=== PATIENT | male | born 1945 | race Caucasian/White ===

== ENCOUNTER 2016-12-30 09:57 | Emergency (ER) | payer MEDICARE, OTHER ==
--- NOTE | 2016-12-30 11:47 | UC ---
Respiratory Complaint HPI - HPI Summary HPI Summary: PT C/O INTERMITTENT DRY COUGH FOR PAST 10 MONTHS OR SO SINCE BEING IN [place]. SX WAX AND WANE. WILL BE ABSENT FOR 1-2 WEEKS THEN RETURN. NO FEVER, ST OR OTHER URI SX. NO HEMOPTYSIS OR MUCOUS. DENIES CP OR SOB. NOT ASSOCIATED WITH FOOD. FEELS BETTER WHEN HE LAYS DOWN. HAS A H/O ULCER AND TAKES PPI DAILY. DOES NOT TAKE ACEI. - History of Current Complaint Chief Complaint: UCRespiratory Stated Complaint: COUGH Time Seen by Provider: 12/30/16 11:38 Hx Obtained From: Patient Onset/Duration: Gradual Onset, Lasting Weeks, Still Present Timing: Intermittent Episodes Severity Initially: Moderate Severity Currently: Moderate Pain Intensity: 0 Pain Scale Used: 0-10 Numeric Character: Cough: Nonproductive Aggravating Factors: Nothing Alleviating Factors: Nothing Associated Signs And Symptoms: Negative: Dyspnea, Fever, Chills, Pleuritic Chest Pain, Wheezing, Hemoptysis, Edema, URI, Nasal Congestion, Hoarseness - Allergies/Home Medications Allergies/Adverse Reactions: Allergies Allergy/AdvReac Type Severity Reaction Status Date / Time Doxycycline Allergy Hives Verified 12/30/16 10:58 Home Medications: Home Medications Aspirin [Aspirin 81 MG TAB] 12/30/16 [History] PMH/Surg Hx/FS Hx/Imm Hx Cardiovascular History: Hypertension GI/ History: Ulcer - Surgical History Surgical History: Yes Surgery Procedure, Year, and Place: left leg artery blockage - Family History Known Family History: Positive: Hypertension Negative: Respiratory Disease - Social History Alcohol Use: None Substance Use Type: None Smoking Status (MU): Former Smoker Review of Systems Constitutional: Negative Respiratory: Cough Cardiovascular: Negative Gastrointestinal: Negative All Other Systems Reviewed And Are Negative: Yes Physical Exam Triage Information Reviewed: Yes Appearance: Well-Appearing, No Pain Distress, Well-Nourished Vital Signs: Initial Vital Signs Temp 97.6 F 12/30/16 11:00 Pulse 81 12/30/16 11:00 Resp 16 12/30/16 11:00 BP 134/68 12/30/16 11:00 Pulse Ox 100 12/30/16 11:00 Vital Signs Reviewed: Yes Eyes: Positive: Conjunctiva Clear ENT: Positive: Hearing grossly normal, Pharynx normal Neck: Positive: Supple, Nontender, No Lymphadenopathy Respiratory Exam: Normal Cardiovascular Exam: Normal Abdomen Description: Positive: Soft Musculoskeletal: Positive: No Edema Neurological: Positive: Alert Psychological: Positive: Age Appropriate Behavior Skin: Negative: rashes UC Diagnostic Evaluation - Laboratory O2 Sat by Pulse Oximetry: 100 - Radiology Xray Interpretation: No Acute Changes - CHEST XRAY Radiology Interpretation Completed By: Radiologist Respiratory Course/Dx - Differential Dx/Diagnosis Provider Diagnoses: CHRONIC COUGH Discharge - Discharge Plan Condition: Stable Disposition: HOME Patient Education Materials: Chronic Cough (ED) Referrals: Katlyn Franco MD [Medical Doctor] - 2 Weeks Aristides Hoffman MD [Primary Care Provider] - 2 Weeks Additional Instructions: CHEST XRAY SHOWED HYPERINFLATED LUNGS TODAY BUT NOTHING ACUTE. FOLLOW-UP WITH PULMONOLOGY FOR FURTHER EVALUATION OF YOUR CHRONIC COUGH. CONSIDER A GI ETIOLOGY OF YOUR SYMPTOMS IF PULMONOLOGY IS UNREVEALING.
[2016-12-30 12:29] VITALS: BP 151/68
--- NOTE | 2016-12-30 12:44 | RAD ---
Indication: Cough. 2 views of the chest including dual energy PA views demonstrates hyperinflated lung durán. No evidence of alveolar consolidation is noted. No pleural fluid is identified. IMPRESSION: Hyperinflated lung durán. No active cardiopulmonary disease is identified.
== END 2016-12-30 13:08 | disposition home or self-care (01) ==
LOC: UCEAST 09:57
DX: R05 Cough (principal); I10 Essential (primary) hypertension; Z79.891 Long term (current) use of opiate analgesic; Z87.891 Personal history of nicotine dependence
CPT/HCPCS: 71020; 99211; G0463

== ENCOUNTER 2018-05-11 15:02 | Inpatient (IN) | payer MEDICARE, OTHER ==
[2018-05-11] MEDS ORDERED: Morphine VIAL* 10 MG/ML 1 ML VIAL IV PRN (15:11)
[2018-05-11] MEDS ORDERED: Ondansetron ODT TAB* 4 MG SL PRN (15:11)
[2018-05-11] MEDS ORDERED: Piperacillin/Tazobac ADVAN(*) 3.375 GM in NS 0.9% 100 ML* 100 ML IVPB ONE (15:11)
[2018-05-11] MEDS ORDERED: Zosyn per Pharmacy* NOTE FOLLOW UP SCH (16:00)
[2018-05-11] MEDS ORDERED: Magnesium Sulf 4 GM/100 ML IV* 4,000 MG/100 ML BAG IVPB ONE (16:30)
[2018-05-11] MEDS: NS 0.9% 1000 ML** 1,000 ML IV SCH (17:32)
[2018-05-11] MEDS ORDERED: Fluticasone NASAL SPRAY 50MCG* 16 gm SPRAY BTL BOTH NARES PRN (17:48)
[2018-05-11 18:14] LABS: INR 2.58 (0.77-1.02)
[2018-05-11 18:24] LABS: C Reactive Protein 161.76 mg/L (<8.01)
[2018-05-11] MEDS ORDERED: Warfarin TAB(*) 2.5 MG PO ONE (18:30)
[2018-05-11] MEDS: ZOSYN 3.375 GM Q8H per EXTENDED INFUSION IVPB SCH ×2 (18:33)
[2018-05-11] MEDS ORDERED: Iodixanol* (CONTRAST) 320 MG/ML 100 ML SDV IV ONE (19:57)
[2018-05-11] MEDS: Metoprolol Tartrate TAB* 25 MG PO SCH (21:05)
[2018-05-11] MEDS: Famotidine IV* 10 MG/ML 2 ML (20 mg) IV SLOW PU SCH (21:06)
[2018-05-12] MEDS: ZOSYN 3.375 GM Q8H per EXTENDED INFUSION IVPB SCH ×6 (02:38→18:52)
[2018-05-12] MEDS: NS 0.9% 1000 ML** 1,000 ML IV SCH ×2 (06:04→18:54)
[2018-05-12 06:41] LABS: Hematocrit 27 % (42-52); Hemoglobin 8.6 g/dl (14.0-18.0); Mean Corpuscular HGB Conc 32 g/dl (31-36); Mean Corpuscular Hemoglobin 27 pg (27-31); Mean Corpuscular Volume 84 fL (80-94); Mean Platelet Volume 7.3 fL (7.4-10.4); Platelet Count 478 10^3/ul (150-450); Red Blood Count 3.19 10^6/ul (4.00-5.40); Red Cell Distribution Width 18 % (10.5-15); White Blood Count 10.4 10^3/ul (3.5-10.8)
[2018-05-12 06:47] LABS: INR 3.13 (0.77-1.02)
[2018-05-12 06:57] LABS: Albumin 2.6 g/dL (3.2-5.2); Albumin/Globulin Ratio 0.6 (1-3); BUN/Creatinine Ratio 15.5 (8-20); Calcium 8.3 mg/dL (8.6-10.3); EGFR African American 56.5 (>60); EGFR Non-African American 46.7 (>60); Globulin 4.3 g/dL (2-4); Potassium 4.2 mmol/L (3.5-5.0); Total Bilirubin 0.4 mg/dL (0.2-1.0); Total Protein 6.9 g/dL (6.4-8.9)
[2018-05-12] MEDS ORDERED: Phytonadione Oral Solution* 5 MG/25 ML UDC PO ONE (08:38)
[2018-05-12 09:00] LABS: Magnesium 2.5 mg/dL (1.9-2.7)
[2018-05-12] MEDS ORDERED: predniSONE TAB* 20 MG PO SCH (09:00)
--- NOTE | 2018-05-12 09:12 | PN ---
Progress Note - Progress Note Date of Service: 05/12/18 SOAP: Subjective: []Feels about the same as yesterday. Had a large BM that was more formed. Has bright red blood on tissue when wipes. No chills this AM. Still very tired. Medications: Acetaminophen (Tylenol Tab*) 650 mg PO Q4H PRN PRN Reason: FEVER/PAIN Famotidine (Pepcid Iv*) 20 mg IV SLOW PU BID [facility] Last Admin: 05/12/18 10:24 Dose: 20 mg Fluticasone Propionate (Flonase Nasal [place] 50mcg*) 2 spray BOTH NARES DAILY PRN PRN Reason: Allergies Sodium Chloride (Ns 0.9% 1000 Ml) 1,000 mls @ 100 mls/hr IV PER RATE [facility] Last Admin: 05/12/18 06:04 Dose: 100 mls/hr Piperacillin Sod/Tazobactam (Sod 3.375 gm/ Sodium Chloride) 100 mls @ 25 mls/ hr IVPB Q8H [facility] Last Admin: 05/12/18 10:25 Dose: 25 mls/hr Metoprolol Tartrate (Lopressor Tab*) 25 mg PO BID [facility] Last Admin: 05/12/18 10:25 Dose: 25 mg Morphine Sulfate (Morphine Vial*) 5 mg IV Q4H PRN PRN Reason: PAIN Nf: (Pazopanib Hcl [ (Votrient] 800 Mg)) 800 mg PO DAILY [facility] Last Admin: 05/12/18 10:08 Dose: Not Given Ondansetron HCl (Zofran Odt Tab*) 4 mg SL Q6H PRN PRN Reason: NAUSEA/VOMITING Pharmacy Consult (Zosyn Per Pharmacy*) 1 note FOLLOW UP .ZOSYN PER PHARMACY [facility] Prednisone (Deltasone Tab*) 10 mg PO DAILY [facility] Last Admin: 05/12/18 10:24 Dose: 10 mg Objective: [] Vital Signs Temp Pulse Resp BP Pulse Ox 97.5 F 83 20 155/85 97 05/12/18 02:39 05/12/18 02:39 05/12/18 02:39 05/12/18 02:39 05/12/18 02:39 A&Ox3, EOMI, ROY, neuro grossly non-focal HRR, S1S2 LS clear +BS, abd. soft and on-tender No edema Pale Laboratory Results - last 24 hr 05/11/18 05/11/18 05/12/18 17:25 17:25 06:20 WBC RBC Hgb Hct MCV MCH MCHC RDW Plt Count MPV INR (Anticoag Therapy) 2.58 H Sodium 132 L Potassium 4.2 Chloride 102 Carbon Dioxide 21 L Anion Gap 9 BUN 23 Creatinine 1.48 H Est GFR ( Amer) 56.5 Est GFR (Non-Af Amer) 46.7 BUN/Creatinine Ratio 15.5 Glucose 102 H Calcium 8.3 L Magnesium 2.5 Total Bilirubin 0.40 AST 23 ALT 24 Alkaline Phosphatase 162 H C-Reactive Protein 161.76 H Total Protein 6.9 Albumin 2.6 L Globulin 4.3 H Albumin/Globulin Ratio 0.6 L Prealbumin 9 L 05/12/18 05/12/18 06:20 06:20 WBC 10.4 RBC 3.19 L Hgb 8.6 L Hct 27 L MCV 84 MCH 27 MCHC 32 RDW 18 H Plt Count 478 H D MPV 7.3 L INR (Anticoag Therapy) 3.13 H Sodium Potassium Chloride Carbon Dioxide Anion Gap BUN Creatinine Est GFR ( Amer) Est GFR (Non-Af Amer) BUN/Creatinine Ratio Glucose Calcium Magnesium Total Bilirubin AST ALT Alkaline Phosphatase C-Reactive Protein Total Protein Albumin Globulin Albumin/Globulin Ratio Prealbumin EXAM: CT Abdomen and Pelvis With Contrast EXAM DATE/TIME: 05/11/2018 8:13 PM COMPARISON: AW/WOPW CT ABD W/WO PELVIS W 01/28/2018 10:29 AM C/A W CT CHEST/ABD W 04/04/2018 2:04:16 PM IMPRESSION: 1. Findings of interval RCC metastatic disease progression including numerous new or enlarged pulmonary nodules and ill-defined soft tissue in the surgical bed. No additional findings to correlate with patient's symptomatology. 2. Additional incidental findings as described. To contact [facility] with a general question: [facility] - [phone] For direct physician to physician contact: Physician Hotline - [phone] [facility] ([facility] ID #[id number]) <Electronically signed by Kely Núñez MD in OV> 05/11/182048 CT Head Without and With Contrast EXAM DATE/TIME: 05/11/2018 8:07 PM IMPRESSION: 1. No acute intracranial abnormality. 2. Unchanged age-related atrophy and mild chronic small vessel ischemic disease. To contact [facility] with a general question: [facility] - [phone] For direct physician to physician contact: Physician Hotline - [phone] [facility] ([facility] ID #[id number]) <Electronically signed by Kely Núñez MD in OV> 05/11/182050 Assessment: []72 yo with metastatic RCC admitted last night with persistent weakness and failure to thrive at home. Constellation of symptoms concerning for infectious process and systemic inflammatory process with leukocytosis, lactic acidosis (albeit mild and question of dehydration), hypotension, tachycardia, and temp. 96.7F in the office. Work-up thus far reveals possible GI bleed and progressive cancer. Plan: []1. 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 - leukocytosis improved and cultures pending, continue abx. for now 2. RCC: progressive disease on CT, no evidence for CHICKEN CUTTER mets - has not been consistent with Pazopinib and needs to resume - we will plan to add immunotherapy once outpatient based on recent phase 3 data : Ml et al., DOI: [id number] 3. Stool Occult blood positive: hx. 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 K now, and repeat INR - consult GI re: EGD possibly tomorrow 4. Anemia: likely related to blood loss, however component of chronic disease as well - transfuse 1 unit PRBCs, risks and benefits reviewed, pt. has had tranfusions before, agreeable and denies questions 5. Protein-caloric malnutrition: pre-ablumin 9, and wt. loss of >10 lbs in <1 mo (office wts = 04/20 169#, 05/11 154#) - nutrition consult 6. Weakness: multi-factorial - request PT consult
[2018-05-12] MEDS: PAZOPANIB HCL 800 MG PO SCH (10:08)
[2018-05-12] MEDS: Famotidine IV* 10 MG/ML 2 ML (20 mg) IV SLOW PU SCH ×2 (10:24→21:26)
[2018-05-12] MEDS: predniSONE TAB* 10 MG PO SCH (10:24)
[2018-05-12] MEDS: Metoprolol Tartrate TAB* 25 MG PO SCH ×2 (10:25→21:26)
[2018-05-12] MEDS: Acetaminophen TAB* 325 MG PO PRN ×2 (13:15→21:38)
--- NOTE | 2018-05-12 14:56 | ECHO ---
Patient: JONNY HAMILTON [facility] Rec#: [id number] : 1945 Date: 05/12/2018 Age: 72y Height: 175.3 cm / 69.0 in Weight: 71.7 kg / 158.0 lbs Sex: M BSA: 1.9 Room#: [facility] Admit Date#: 05/11/2018 Type: Inpatient Referring: Aristides Hoffman MD Reading: Govind Anne MD Air Box Tester: Mariana Valentine RN RDCS CC: Aristides Hoffman MD Transthoracic Echocardiogram Indication: Shortness of breath, valvular disease BP: 155/85 HR: 93 Rhythm: NSR Findings History: HTN, HLD, LBBB, PVD, kidney cancer with right nephrectomy, former smoker Technical Comments: The study quality is fair. The study is technically limited due to the patient's smoking history. Left Ventricle: The left ventricular chamber size is decreased. Mild concentric left ventricular hypertrophy is observed. Basal septal hypertrophy and systolic anterior motion of the mitral valve are observed creating an outflow tract gradient. The septal knuckle measures 1.7cm. There is a focal wall motion abnormality present. There is moderately decreased left ventricular systolic function. The estimated ejection fraction is 30-35%. The lateral, posterolateral, and basal anterosetpal are best preserved. The is chordal HANNA and moderate dynamic LVOT obstruction up to 2.9 mps and up to 3 mps with valsalva. There is a left ventricular septal wall motion abnormality observed, possibly due to the presence of a left bundle branch block. Abnormal left ventricular diastolic function is observed. The basal inferior, mid anteroseptal, mid anterior, mid anterolateral, mid inferolateral, mid inferior, apical lateral, and apical inferior wall segments are hypokinetic (score 2). The mid inferoseptal, and apical anterior wall segments are akinetic (score 3). The apical septal wall segment is dyskinetic (score 4). Overall wallmotion score index is 1.94 Left Atrium: The left atrial chamber size is normal. Right Ventricle: The right ventricular chamber size and systolic function are within normal limits. Right Atrium: The right atrial cavity size is normal. Aortic Valve: The aortic valve is trileaflet. The aortic valve leaflets are mildly thickened. There is moderate thickening of the left coronary cusp. Systolic excursion of the left coronary cusp is reduced. There is a trace of aortic regurgitation. There is borderline aortic stenosis present. The mean gradient of the aortic valve is 11 mmHg. The peak instantaneous gradient of the aortic valve is 24 mmHg. The aortic valve area, by peak velocities, is calculated at 2.2 cm2. The aortic valve area, by VTI's, is calculated at 2.4 cm2. Mitral Valve: The mitral valve leaflets are mildly thickened. There is mild mitral regurgitation. There is no evidence of mitral stenosis. Chordal systolic anterior motion is visualized. Tricuspid Valve: The tricuspid valve leaflets are normal. There is mild tricuspid regurgitation. No pulmonary hypertension is noted. There is no tricuspid stenosis. Pulmonic Valve: The pulmonic valve structure is not well visualized. There is mild to moderate pulmonic regurgitation. There is no pulmonic stenosis. Pericardium: There is no significant pericardial effusion. A pericardial fat pad is visualized. Aorta: There is no dilatation of the ascending aorta. The aortic arch is not well visualized. There is no dilation of the aortic root. Pulmonary Artery: The main pulmonary artery appears normal. Venous: The inferior vena cava appears normal in size. There is a greater than 50% respiratory change in the inferior vena cava dimension. Conclusions The study is technically limited due to the patient's smoking history. Mild concentric left ventricular hypertrophy is observed withn a relatively thicker upper septum. Basal septal hypertrophy and systolic anterior motion of the mitral valve are observed creating an outflow tract gradient. The septal knuckle measures 1.7 cm. There are focal wall motion abnormalites present. There is moderately decreased left ventricular systolic function. The estimated ejection fraction is 30-35%. The lateral, posterolateral, and basal anterosetpal are best preserved. The is chordal HANNA and moderate dynamic LVOT obstruction up to 2.9 mps and up to 3 mps with valsalva. There is a left ventricular septal wall motion abnormality observed, possibly due to the presence of a left bundle branch block. The aortic valve leaflets are mildly thickened. There is borderline aortic stenosis present. There is mild mitral regurgitation. There is mild tricuspid regurgitation. There is mild to moderate pulmonic regurgitation. Compared to 03/2010, the wall motion abnormalities are new and the EF has decreased from 55-60% then to 30-35% now. The LVOT velocity has increased from 2.6 mps then to 2.9 mps now. Measurements Name Value Normal Range RVIDd (AP) 2D 3.1 cm (0.9 - 2.6) RVDdMajor (2D) 2.9 cm (2.2 - 4.4) RAd ISD 4CH 3.5 cm (3.4 - 4.9) RA (A4C)W 2.9 cm (2.9 - 4.6) IVSd (2D) 1.2 cm (0.6 - 1) LVPWd (2D) 1.1 cm (0.6 - 1) LVIDd (2D) 3.4 cm (3.6 - 5.4) LVIDs (2D) 2.7 cm - LV FS (2D) 21 % (25 - 45) Aortic Annulus 2 cm (1.4 - 2.6) Ao root diameter (2D) 3.1 cm (2.1 - 3.5) Ascending Ao 3.4 cm (2.1 - 3.4) LA dimension (AP) 2D 3.1 cm (2.3 - 3.8) LAd ISD 4CH 3.1 cm (2.9 - 5.3) LA ISD 4CH W 2.8 cm (2.5 - 4.5) Name Value Normal Range LA ESV SP 4CH (A/L) 15 ml - LA ESV SP 2CH (A/L) 47 ml - LA ESV BP (A/L) 31 ml - LA ESV BP (A/L) index 16.6 ml/m2 - LA ESV SP 4CH (MOD) 13 ml - LA ESV SP 2CH (MOD) 44 ml - Name Value Normal Range MV E-wave Vmax 0.5 m/sec - MV deceleration time 141 msec - MV A-wave Vmax 0.92 m/sec - MV E:A ratio 0.54 ratio - LV septal e' Vmax 0.05 m/sec - LV lateral e' Vmax 0.06 m/sec - LV E:e' septal ratio 10 ratio - LV E:e' lateral ratio 8.3 ratio - Name Value Normal Range AV Vmax 2.4 m/sec - AV VTI 32.3 cm - AV peak gradient 24 mmHg - AV mean gradient 11 mmHg - LVOT diameter 2 cm - LVOT Vmax 1.7 m/sec - LVOT VTI 24.5 cm - LVOT peak gradient 12 mmHg - LVOT mean gradient 7 mmHg - DOI (VTI) 0.76 ratio - DOI (Vmax) 0.71 ratio - ORALIA (continuity Vmax) 2.2 cm2 - ORALIA (continuity VTI) 2.4 cm2 - Name Value Normal Range TR Vmax 2.7 m/sec - TR peak gradient 29 mmHg - RAP 3 mmHg - RVSP 32 mmHg - IVC diameter 0.9 cm - Name Value Normal Range PV Vmax 0.81 m/sec - Wallmotion BAS Normal BA Normal BAL Normal JAY Normal BI Hypokinetic BIS Normal MAS Hypokinetic MA Hypokinetic MAL Hypokinetic MIL Hypokinetic KS Hypokinetic MIS Akinetic Dyskinetic AA Akinetic AL Hypokinetic AI Hypokinetic APEX Hypokinetic
--- NOTE | 2018-05-12 19:46 | CONS ---
CONSULTATION REPORT: DATE OF CONSULT: 05/12/18 REQUESTING PHYSICIAN: Dianna Mistry NP*. REASON FOR CONSULT: Anemia and epigastric pain. HISTORY OF PRESENT ILLNESS: This is a 72-year-old male with a history of metastatic renal cell carcinoma, who is in rare progressive weakness and fatigue and was admitted to [facility] secondary to this. He admits to subjective fever, but no distinct chills or rigors. He states that initially he had diarrhea with 4 to 5 bowel movements a day, liquid, but now has been swinging more towards constipation. He denies any maribell melena. He admits to occasional bright red blood when wiping only. This does not fill the bowl. He admits to a new epigastric pain in a band- like fashion that waxes and wanes, 4/10, sharp , can be worse postprandial. No nausea or emesis. He has been continuing to lose weight unintentionally. Appetite has been relatively poor. No dysphagia. No odynophagia. He states that he usually does not have heartburn, but over the last week to [id number], he has had increasing heartburn after his omeprazole was stopped. The remainder of the 14- point review of systems was grossly negative. PAST MEDICAL HISTORY: RCC, metastatic. PAST SURGICAL HISTORY: Port placement. Colonoscopy done in [place] [address] Jyotsna Bal revealed multiple polyps, fair colonoscopy prep, small nonbleeding hemorrhoids, normal terminal ileum, no recent upper endoscopy on record. HOME MEDICATIONS: Include: 1. Aspirin. 2. Vitamin D. 3. Felodipine. 4. Fluticasone. 5. Magnesium. 6. Metoprolol. 7. Benicar. 8. Pazopanib. 9. Pravastatin. 10. Prednisone. 11. Warfarin. FAMILY HISTORY: Denies any family history of colorectal cancer, inflammatory bowel disease, or GI cancer. SOCIAL HISTORY: Social alcohol. Prior tobacco. REVIEW OF SYSTEMS: The remainder of the 14-point review of systems is grossly negative. PHYSICAL EXAM: Vital Signs: Blood pressure is 126/67, pulse is 78, respiratory rate is 16, temperature is 98.1. General: Alert and oriented x3. HEENT: Atraumatic, normocephalic. Pupils equal, round, reactive to light. Extraocular movements are intact. Sclerae anicteric. Conjunctivae are pink. Cardiovascular: Regular rate and rhythm. S1, S2. Respiratory: Diminished at the base with scant rhonchi that do not totally clear. Abdomen: Soft, mild tenderness to palpation in the epigastrium. No guarding or rebound. Bowel sounds positive. Extremities: No clubbing, no cyanosis, no edema. Skin: Scattered ecchymoses. DIAGNOSTIC STUDIES/LAB DATA: Hemoglobin 8.6, early in May was 10.3; however, he appears to hang in the 8 to 9s on a chronic basis before this. Platelet count 478. ESR 106. INR 3.13. Sodium 132. Creatinine 1.48. AST 23, ALT 24, alkaline phosphatase 162. Albumin 2.6, prealbumin 9. CT of the abdomen and pelvis shows findings of interval progression of his metastatic disease with new and enlarging pulmonary nodules. Pancreas appears normal. No ductal dilatation. Stomach and bowels appear grossly normal. Brain CT with no acute intracranial abnormality. ASSESSMENT AND PLAN: A 72-year-old male with metastatic renal cell carcinoma, presenting with fatigue and weakness and anemia. 1. Anemia. Normocytic. No overt signs or loss at this point outside of scant bleeding when wiping. He does not have gross hematochezia or melena. He had a colonoscopy in April 2017 that showed evidence of polyps and fair prep. He has not had a recent upper endoscopy. Would recommend upper endoscopy to evaluate both his abdominal discomfort and his anemia, suspect this may be related to a combination of his anemia of chronic disease along with potential intermittent loss with his anticoagulation. We will potentially plan for upper endoscopy on 05/13/18, pending clinical course. 2. Abdominal pain. Pancreas looks normal on the CT, does not appear to be consistent with pancreatitis. Increasing reflux after stopping his omeprazole recently. Recommend restarting PPI and we will plan endoscopic evaluation. 3. History of renal cell carcinoma per primary team. [id number]/[facility] #: [id number] ALEXD
[2018-05-12] MEDS ORDERED: Famotidine IV* 10 MG/ML 2 ML (20 mg) ONE (21:19)
[2018-05-13] MEDS: ZOSYN 3.375 GM Q8H per EXTENDED INFUSION IVPB SCH ×6 (02:17→17:59)
[2018-05-13 05:25] LABS: ABS Basophils 0 10^3/ul (0-0.2); ABS Eosinophils 0 10^3/ul (0-0.6); ABS Lymphocytes 2.3 10^3/ul (1.0-4.8); ABS Monocytes 1.2 10^3/ul (0-0.8); ABS Neutrophils 6.9 10^3/ul (1.5-7.7); ABS Nucleated RBC 0 10^3/ul; Eosinophil % 0.1 %; Hematocrit 27 % (42-52); Hemoglobin 8.7 g/dl (14.0-18.0); Lymphocyte % 21.6 %; Mean Corpuscular HGB Conc 32 g/dl (31-36); Mean Corpuscular Hemoglobin 28 pg (27-31); Mean Corpuscular Volume 86 fL (80-94); Mean Platelet Volume 7.3 fL (7.4-10.4); Nucleated Red Blood Cells % 0; Platelet Count 403 10^3/ul (150-450); Red Blood Count 3.18 10^6/ul (4.00-5.40); Red Cell Distribution Width 18 % (10.5-15); White Blood Count 10.5 10^3/ul (3.5-10.8)
[2018-05-13 05:31] LABS: INR 1.67 (0.77-1.02)
[2018-05-13 05:46] LABS: Albumin 2.4 g/dL (3.2-5.2); Albumin/Globulin Ratio 0.6 (1-3); BUN/Creatinine Ratio 13.4 (8-20); EGFR African American 52.8 (>60); EGFR Non-African American 43.6 (>60); Magnesium 1.9 mg/dL (1.9-2.7); Potassium 4.6 mmol/L (3.5-5.0); Total Bilirubin 0.3 mg/dL (0.2-1.0); Total Protein 6.4 g/dL (6.4-8.9)
[2018-05-13] MEDS: Acetaminophen TAB* 325 MG PO PRN ×2 (09:00→20:53)
[2018-05-13] MEDS: Metoprolol Tartrate TAB* 25 MG PO SCH ×2 (09:01→20:53)
[2018-05-13] MEDS: Famotidine IV* 10 MG/ML 2 ML (20 mg) IV SLOW PU SCH ×2 (09:01→20:54)
[2018-05-13] MEDS: predniSONE TAB* 10 MG PO SCH (09:01)
[2018-05-13] MEDS: PAZOPANIB HCL 800 MG PO SCH (09:39)
[2018-05-13] MEDS ORDERED: fentaNYL* 50 MCG/ML 2 ML VIAL (100 MCG VIAL) ONE (12:48)
[2018-05-13] MEDS ORDERED: Midazolam* 1 MG/ML 10 ML VIAL (10 MG) ONE (12:49)
[2018-05-13] MEDS: NS 0.9% 1000 ML** 1,000 ML IV SCH (13:16)
[2018-05-13] MEDS ORDERED: Pantoprazole TAB * 40 MG TAB PO ONE (14:24)
[2018-05-13] MEDS: Pantoprazole TAB * 40 MG TAB PO SCH (15:34)
--- NOTE | 2018-05-13 18:46 | PN ---
Progress Note - Progress Note Date of Service: 05/13/18 SOAP: Subjective: []Feels a little better since being on antibioitcs. Better then admission. Eating fine but feeling weak. Diffuse muscle pain. No fevers. Acetaminophen (Tylenol Tab*) 650 mg PO Q4H PRN PRN Reason: FEVER/PAIN Last Admin: 05/13/18 09:00 Dose: 650 mg Famotidine (Pepcid Iv*) 20 mg IV SLOW PU BID [facility] Last Admin: 05/13/18 09:01 Dose: 20 mg Fluticasone Propionate (Flonase Nasal [place] 50mcg*) 2 spray BOTH NARES DAILY PRN PRN Reason: Allergies Heparin Sodium (Porcine) (Heparin Flush Port (Ivad)) 5 ml FLUSH DAILY [facility]; Protocol Last Admin: 05/13/18 15:34 Dose: 5 ml Piperacillin Sod/Tazobactam (Sod 3.375 gm/ Sodium Chloride) 100 mls @ 25 mls/ hr IVPB Q8H [facility] Last Admin: 05/13/18 17:59 Dose: 25 mls/hr Sodium Chloride (Ns 0.9% 1000 Ml) 1,000 mls @ 75 mls/hr IV PER RATE [facility] Last Admin: 05/13/18 13:16 Dose: 75 mls/hr Metoprolol Tartrate (Lopressor Tab*) 25 mg PO BID [facility] Last Admin: 05/13/18 09:01 Dose: 25 mg Morphine Sulfate (Morphine Vial*) 5 mg IV Q4H PRN PRN Reason: PAIN Pto Nf Med* ( Pazopanib Hcl [ Votrient] 200 Mg Tab ) 800 mg PO 2100 [facility] Ondansetron HCl (Zofran Odt Tab*) 4 mg SL Q6H PRN PRN Reason: NAUSEA/VOMITING Pantoprazole Sodium (Protonix Tab*) 40 mg PO QAM@0600 [facility] Last Admin: 05/13/18 15:34 Dose: 40 mg Pharmacy Consult (Zosyn Per Pharmacy*) 1 note FOLLOW UP .ZOSYN PER PHARMACY [facility] Prednisone (Deltasone Tab*) 10 mg PO DAILY [facility] Last Admin: 05/13/18 09:01 Dose: 10 mg Objective: [] Vital Signs Temp Pulse Resp BP Pulse Ox 97.3 F 75 22 161/82 98 05/13/18 17:06 05/13/18 17:06 05/13/18 17:06 05/13/18 17:06 05/13/18 17:06 HEENT - pale no oral lesions CTA RRR S1S2, no murmurs. ABD: Good BS, non tender. No HSM Ext tr edema Assessment: []72 yo with metastatic RCC admitted last night with persistent weakness and failure to thrive at home. Constellation of symptoms concerning for infectious process and systemic inflammatory process with leukocytosis secondary to cancer. He has had a modest improvement on antibiotics. While CT shows an area of progression in renal bed, I suspect symptoms driven by a paraneopalstic inflammatory response. Discussed with son and patient. Without therapy he will be sicker and sicker. Treatment will be high risk. He has just started pazopanib but unclear if tolerating. Options include continued pazopanib , adding pembrolizumab (Ml et al., DOI: [id number]), changing to Ipi/Nivo, hospice. Plan: []1. 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 - leukocytosis improved and cultures pending, continue abx. for now 2. RCC: progressive disease on CT, no evidence for MAIL MESSENGER CONTRACTOR mets. Discussed with patient and son, will see how he does over weekend. If we are going to give immunotherpy at all will have to be soon. 3. GIB. Ulcers, hold anticoagulation, PPI. Second to inflammatory stat or watermaster prednisone. 4. Anemia: likely related to blood loss, however component of chronic disease as well. Follow for now. 5. Protein-caloric malnutrition: pre-ablumin 9, and wt. loss of >10 lbs in <1 mo (office wts = 04/20 169#, 05/11 154#) - nutrition consult, encouraged po's 6. Weakness: multi-factorial - request PT consult, try and walk tomorrow. 7. CHF. New, unclear etiology. There are care reports of rapid CHF on pazopanib. Package insert reports CHF in 0.5% of patients. Lisinopril 10 mg po daily.
[2018-05-13] MEDS: PAZOPANIB HCL 200 MG PO SCH (20:54)
--- NOTE | 2018-05-13 21:58 | PRO ---
DATE: 05/13/18 - ROOM #420 REFERRING PHYSICIANS: Dr. Aristides Hoffman, Dr. Lenny Escobedo.* PROCEDURE: Upper gastrointestinal endoscopy through to fourth portion of duodenum. INDICATION: This 72-year-old man was admitted because of weakness and anemia with hemoglobin 8.6, hematocrit 27, MCV 84. He lives alone and says that an acid blocking medicine was stopped several weeks ago for reasons he is not aware of. He had been on an acid kyle for over 10 years. His son mentioned something about his magnesium level. Thirteen months ago, he had upper and lower endoscopy demonstrating iron- deficiency anemia, and no malabsorption or ulcer was seen on the upper endoscopy. Colonoscopy the same day, in a separate report, and a couple of tubular adenomas but no gross bleeding point. At home, he had been having some diarrhea and has noted that his magnesium level on 04/19/18 was indeed a panic value of 0.6. His PPI was stopped and magnesium supplement was begun. He has a history of GI bleeding from presumed duodenal ulcers [place] [address] Alvarenga scoped him. He was on warfarin at that time also. ENDOSCOPIST: Dr. Gates. MEDICATIONS: Midazolam 5, fentanyl 100. FINDINGS: He is an elderly man in bed, rather vague in the history and unable to process detailed information. He is not having any acute nausea, vomiting, or signs of bleeding. He was positioned left side down and moderate sedation induced with sequential doses of medication, and he did better than one might have expected. ESOPHAGOGASTRODUODENOSCOPY: Larynx - symmetric, limited views. Esophagus - easily entered. The mucosa is normal in the upper, mid, and lower esophagus. Stomach - generally normal mucosa in the cardia, fundus, body, and antrum. No blood is seen. There is a small hiatal hernia seen on retroflexion. Duodenum - there are shallow of 6-mm erosion/ulcers without any active bleeding or adherent blood clots. The mucosal breaks appear completely benign and low risk. The duodenal sweep between the bulb and second portion, there are multiple small 2 to 4-mm ulcers. There is no visible vessel or blood clot seen. The third and fourth portions of the duodenum are normal. IMPRESSION: 1. Small hiatal hernia. 2. Gastritis - punctate red spots, fairly intense, seen in the gastric fundus with some minimal wispy bleeding. 3. Duodenal ulcers - no active bleeding and a PPI to start. [id number]/[facility] #: [id number] [facility]
[2018-05-14] MEDS: NS 0.9% 1000 ML** 1,000 ML IV SCH (02:13)
[2018-05-14] MEDS: ZOSYN 3.375 GM Q8H per EXTENDED INFUSION IVPB SCH ×6 (02:13→17:39)
[2018-05-14] MEDS: Pantoprazole TAB * 40 MG TAB PO SCH (05:30)
[2018-05-14 05:44] LABS: ABS Basophils 0.1 10^3/ul (0-0.2); ABS Eosinophils 0.1 10^3/ul (0-0.6); ABS Lymphocytes 3.1 10^3/ul (1.0-4.8); ABS Monocytes 1.4 10^3/ul (0-0.8); ABS Neutrophils 8.7 10^3/ul (1.5-7.7); ABS Nucleated RBC 0 10^3/ul; Eosinophil % 0.5 %; Hematocrit 30 % (42-52); Hemoglobin 9.5 g/dl (14.0-18.0); Lymphocyte % 23.3 %; Mean Corpuscular HGB Conc 32 g/dl (31-36); Mean Corpuscular Hemoglobin 27 pg (27-31); Mean Corpuscular Volume 85 fL (80-94); Mean Platelet Volume 6.9 fL (7.4-10.4); Nucleated Red Blood Cells % 0; Platelet Count 496 10^3/ul (150-450); Red Blood Count 3.51 10^6/ul (4.00-5.40); Red Cell Distribution Width 18 % (10.5-15); White Blood Count 13.4 10^3/ul (3.5-10.8)
[2018-05-14 06:00] LABS: Albumin 2.6 g/dL (3.2-5.2); Albumin/Globulin Ratio 0.6 (1-3); BUN/Creatinine Ratio 13.5 (8-20); Calcium 8.3 mg/dL (8.6-10.3); EGFR African American 59.8 (>60); EGFR Non-African American 49.4 (>60); Globulin 4.2 g/dL (2-4); Potassium 4.7 mmol/L (3.5-5.0); Total Bilirubin 0.3 mg/dL (0.2-1.0); Total Protein 6.8 g/dL (6.4-8.9)
[2018-05-14] MEDS: predniSONE TAB* 10 MG PO SCH (08:59)
[2018-05-14] MEDS: Metoprolol Tartrate TAB* 25 MG PO SCH ×2 (08:59→20:16)
[2018-05-14] MEDS: Lisinopril TAB* 10 MG PO SCH (08:59)
[2018-05-14] MEDS: Famotidine IV* 10 MG/ML 2 ML (20 mg) IV SLOW PU SCH ×2 (08:59→20:17)
[2018-05-14] MEDS: Acetaminophen TAB* 325 MG PO PRN ×2 (10:41→20:15)
[2018-05-14] MEDS: PAZOPANIB HCL 200 MG PO SCH (20:16)
[2018-05-15] MEDS: ZOSYN 3.375 GM Q8H per EXTENDED INFUSION IVPB SCH ×6 (01:55→17:39)
[2018-05-15] MEDS: Pantoprazole TAB * 40 MG TAB PO SCH (06:01)
[2018-05-15] MEDS: Acetaminophen TAB* 325 MG PO PRN ×2 (06:03→10:29)
[2018-05-15] MEDS: NS 0.9% 1000 ML** 1,000 ML IV SCH ×2 (06:46→20:30)
[2018-05-15] MEDS: Metoprolol Tartrate TAB* 25 MG PO SCH ×2 (09:04→21:24)
[2018-05-15] MEDS: Lisinopril TAB* 10 MG PO SCH (09:04)
[2018-05-15] MEDS: predniSONE TAB* 10 MG PO SCH (09:04)
[2018-05-15] MEDS: Famotidine IV* 10 MG/ML 2 ML (20 mg) IV SLOW PU SCH ×2 (09:05→21:25)
[2018-05-15] MEDS ORDERED: Lisinopril TAB* 10 MG PO ONE (13:00)
[2018-05-15] MEDS ORDERED: Valsartan TAB* 160 MG PO SCH (17:00)
[2018-05-15] MEDS: PAZOPANIB HCL 200 MG PO SCH (21:24)
[2018-05-16] MEDS: ZOSYN 3.375 GM Q8H per EXTENDED INFUSION IVPB SCH ×4 (02:35→11:55)
[2018-05-16] MEDS: Pantoprazole TAB * 40 MG TAB PO SCH (07:07)
[2018-05-16 07:13] VITALS: BP 166/88
[2018-05-16] MEDS: Metoprolol Tartrate TAB* 25 MG PO SCH (08:25)
[2018-05-16] MEDS: predniSONE TAB* 10 MG PO SCH (08:25)
[2018-05-16] MEDS: Famotidine IV* 10 MG/ML 2 ML (20 mg) IV SLOW PU SCH (08:25)
[2018-05-16] MEDS ORDERED: Lisinopril TAB* 10 MG PO SCH (09:00)
[2018-05-16] MEDS: NS 0.9% 1000 ML** 1,000 ML IV SCH (09:06)
--- NOTE | 2018-05-16 10:08 | PN ---
Progress Note - Progress Note Date of Service: 05/16/18 SOAP: Subjective: []Feels much better today. Eating well and breathing is better. Has been walking around over weekend. Marked change from one week ago. No fevers, has had increased blood pressure. Acetaminophen (Tylenol Tab*) 650 mg PO Q4H PRN PRN Reason: FEVER/PAIN Last Admin: 05/15/18 10:29 Dose: 650 mg Famotidine (Pepcid Iv*) 20 mg IV SLOW PU BID [facility] Last Admin: 05/16/18 08:25 Dose: 20 mg Fluticasone Propionate (Flonase Nasal [place] 50mcg*) 2 spray BOTH NARES DAILY PRN PRN Reason: Allergies Heparin Sodium (Porcine) (Heparin Flush Port (Ivad)) 5 ml FLUSH DAILY [facility]; Protocol Last Admin: 05/16/18 08:02 Dose: Not Given Piperacillin Sod/Tazobactam (Sod 3.375 gm/ Sodium Chloride) 100 mls @ 25 mls/ hr IVPB Q8H [facility] Last Admin: 05/16/18 02:35 Dose: 25 mls/hr Sodium Chloride (Ns 0.9% 1000 Ml) 1,000 mls @ 75 mls/hr IV PER RATE [facility] Last Admin: 05/16/18 09:06 Dose: 75 mls/hr Lisinopril (Prinivil Tab*) 20 mg PO DAILY [facility] Last Admin: 05/16/18 08:24 Dose: 20 mg Metoprolol Tartrate (Lopressor Tab*) 25 mg PO BID [facility] Last Admin: 05/16/18 08:25 Dose: 25 mg Morphine Sulfate (Morphine Vial*) 5 mg IV Q4H PRN PRN Reason: PAIN Pto Nf Med* ( Pazopanib Hcl [ Votrient] 200 Mg Tab ) 800 mg PO 2100 [facility] Last Admin: 05/15/18 21:24 Dose: 800 mg Ondansetron HCl (Zofran Odt Tab*) 4 mg SL Q6H PRN PRN Reason: NAUSEA/VOMITING Pantoprazole Sodium (Protonix Tab*) 40 mg PO QAM@0600 [facility] Last Admin: 05/16/18 07:07 Dose: 40 mg Pharmacy Consult (Zosyn Per Pharmacy*) 1 note FOLLOW UP .ZOSYN PER PHARMACY [facility] Prednisone (Deltasone Tab*) 10 mg PO DAILY [facility] Last Admin: 05/16/18 08:25 Dose: 10 mg Valsartan (Diovan Tab*) 320 mg PO 1700 [facility] Last Admin: 05/15/18 17:33 Dose: 320 mg Objective: [] Vital Signs Temp Pulse Resp BP Pulse Ox 99.0 F 88 18 166/88 98 05/16/18 07:09 05/16/18 07:09 05/16/18 08:00 05/16/18 07:09 05/16/18 07:09 HEENT - pale no oral lesions CTA RRR S1S2, no murmurs. ABD: Good BS, non tender. No HSM Ext tr edema Assessment: []72 yo with metastatic RCC admitted last night with persistent weakness and failure to thrive at home. Constellation of symptoms concerning for infectious process and systemic inflammatory process with leukocytosis secondary to cancer. He has had a clear improvement on antibiotics and supportive care. While CT shows an area of progression in renal bed, I suspect symptoms driven by a paraneopalstic inflammatory response. Feels ready for discharge today. Has been tolerating Votrant in hospital. Plan: []1. RCC: progressive disease on CT, no evidence for [employer] mets. Discussed with patient and son. Treatment will be high risk. He has just started pazopanib but unclear if tolerating. Will continue pazopanib at this time adding pembrolizumab with change to Axitinib next month. (Ml et al., DOI: 10.1056/ [id number]), - Discharge today and follow up on for office visit and Pembrolizumab. 3. GIB. Ulcers, hold anticoagulation, PPI. Second to inflammatory stat or retirement prednisone. 4. Anemia. Improved and will follow. 5. Protein-caloric malnutrition: pre-albumin 9, and wt. loss of >10 lbs in <1 mo (office wts = 04/20 169#, 05/11 154#). Eating well at this time, will follow as out-patient. 6. Infection. Continue antibiotics for one additional week, Augmentin 875 mg po bid. 7. Weakness: multi-factorial, improved. 7. CHF. New, unclear etiology. Infection, medication, ischemia. - manage medically, will continue Metoprolol, diovan and add Lasix 20 mg po daily - Follow BP - Out-patient stress test once improved, will consult cardiology. Poor candidate for intervention.
--- NOTE | 2018-05-16 12:02 | DS ---
DISCHARGE SUMMARY: DATE OF ADMISSION: 05/11/18 DATE OF DISCHARGE: 05/16/18 DISCHARGE DIAGNOSES: 1. Congestive heart failure. 2. Metastatic renal cell cancer. 3. Fever and leukocytosis. 4. Anemia. 5. Anorexia and weakness. HOSPITAL COURSE: Came in on 05/11/18, essentially failure to thrive and marked anemia. He had fever on admission over 101.5 as well. He was noted to be leukocytotic and progressively anemic. He had a CT scan of the abdomen and pelvis which showed stable pulmonary lesions, but progressive renal cell cancer at the bed of his prior nephrectomy. No clear source of infection was found, but he was placed on antibiotics and did seem to improve. He had an echocardiogram done on 05/11/18 that showed congestive heart failure with an ejection fraction of 30% to 35%. Last echocardiogram was in 2010 and at that time he had a normal ventricular size and function. Etiology of heart failure is unclear with differential including sepsis, side effect of Votrient though he has been on therapy for short period of time, underlying cardiac disease. He was continued on his metoprolol and placed on Diovan 320 p.o. daily. He is continued on warfarin through hospitalization. Today, fevers have subsided. His strength has improved and he is eating well. Walking around without any difficulty. He had nutrition consult and has been receiving Ensure supplementation. 1. I will plan discharge today with followup in clinic on . 2. Extensive discussion about continued treatment of renal cell cancer. Based on recent phase III data, we will continue oral therapy and add pembrolizumab. He will continue Votrient through this current prescription and then will change to Axitinib to be consistent with recent to be consistent with phase III data. 3. Congestive heart failure. He will continue his metoprolol, lisinopril, warfarin, and he will take Lasix 20 mg p.o. daily on discharge. We will plan a cardiology consultation. He is a poor candidate for intervention. Known mitral stenosis. 4. Anemia. Improved on discharge, we will follow. Return to clinic will be . DISCHARGE MEDICATIONS: 1. Fluconazole nasal spray. 2. Pazopanib 800 mg p.o. daily. 3. Aspirin 81 mg a day. 4. Vitamin D 1000 a day. 5. Plendil 5 mg daily. 6. Magnesium oxide 400 b.i.d. 7. Metoprolol 25 mg b.i.d. 8. Benicar 20 mg p.o. daily. 9. Pravachol 80 mg p.o. daily. 10. Warfarin mg p.o. daily. 11. Augmentin 875 p.o. daily. 12. Lasix 20 mg p.o. daily. 13. Valsartan 320 mg p.o. daily. We will recheck full labs including INR on . [id number]/[facility] #: [id number] [facility]
== END 2018-05-16 12:20 | disposition home health service (06) | DRG 291 ==
LOC: MED 16:06
PROVIDERS: ADMIT Internal Medicine Hematology & Oncology; ATTEND Internal Medicine Hematology & Oncology
PROC: 30233N1 Transfusion of Nonautologous Red Blood Cells into Peripheral Vein, Percutaneous Approach (ICD-10-PCS; 2018-05-12)
PROC: 0DJ08ZZ Inspection of Upper Intestinal Tract, Via Natural or Artificial Opening Endoscopic (ICD-10-PCS; principal; 2018-05-13)
DX: I11.0 Hypertensive heart disease with heart failure (principal); K29.71 Gastritis, unspecified, with bleeding; C64.1 Malignant neoplasm of right kidney, except renal pelvis; E46 Unspecified protein-calorie malnutrition; C78.00 Secondary malignant neoplasm of unspecified lung; R65.10 Systemic inflammatory response syndrome (SIRS) of non-infectious origin without acute organ dysfunction; E87.2 Acidosis; I95.9 Hypotension, unspecified; I50.9 Heart failure, unspecified; E78.5 Hyperlipidemia, unspecified; I05.0 Rheumatic mitral stenosis; K26.9 Duodenal ulcer, unspecified as acute or chronic, without hemorrhage or perforation; I44.7 Left bundle-branch block, unspecified; M35.3 Polymyalgia rheumatica; K44.9 Diaphragmatic hernia without obstruction or gangrene; I73.9 Peripheral vascular disease, unspecified; R19.7 Diarrhea, unspecified; D72.829 Elevated white blood cell count, unspecified; Z68.23 Body mass index [BMI] 23.0-23.9, adult; R53.1 Weakness; E86.0 Dehydration; B99.9 Unspecified infectious disease; R62.7 Adult failure to thrive; D50.0 Iron deficiency anemia secondary to blood loss (chronic); D63.8 Anemia in other chronic diseases classified elsewhere; Z79.01 Long term (current) use of anticoagulants; Z79.82 Long term (current) use of aspirin; Z79.52 Long term (current) use of systemic steroids; Z79.899 Other long term (current) drug therapy; Z88.8 Allergy status to other drugs, medicaments and biological substances; Z83.2 Family history of diseases of the blood and blood-forming organs and certain disorders involving the immune mechanism; Z87.891 Personal history of nicotine dependence; Z83.3 Family history of diabetes mellitus
CPT/HCPCS: 36415; 70470; 74177; 80053; 82272; 83735; 83880; 84134; 85025; 85027; 85610; 85652; 86140; 86850; 86900; 86901; 86922; 87045; 87046; 87899; 93306; 99156; 99157; 99222; 99233; A9270-GY; J1642; J2250; J2543; J3010; J3475; J7512; P9040; Q9967

== ENCOUNTER 2018-05-26 09:44 | Inpatient (IN) | payer MEDICARE, OTHER ==
[2018-05-26] MEDS ORDERED: guaiFENesin/CODIEN 100MG-10MG* 5 ML UDC PO PRN (17:22)
[2018-05-26] MEDS: Metoprolol Tartrate TAB* 25 MG PO SCH (20:34)
[2018-05-26] MEDS: Baclofen TAB* 10 MG PO PRN (20:34)
[2018-05-26] MEDS: Heparin VIAL(*) 5000 UNITS/ML VIAL (FIVE THOUSAND) SUBCUT SCH (20:35)
[2018-05-26] MEDS: NS 0.9% 1000 ML** 1,000 ML IV SCH (20:37)
[2018-05-26] MEDS: Pantoprazole TAB * 40 MG TAB PO SCH (21:43)
[2018-05-27] MEDS: Heparin VIAL(*) 5000 UNITS/ML VIAL (FIVE THOUSAND) SUBCUT SCH (05:33)
[2018-05-27 07:10] LABS: Hematocrit 32 % (36-46); Hemoglobin 10.3 g/dL (14.0-18.0); INR 2.25 (0.77-1.02); Mean Corpuscular HGB Conc 33 g/dL (31-36); Mean Corpuscular Hemoglobin 28 pg (27-31); Mean Corpuscular Volume 87 fL (80-94); Mean Platelet Volume 7.9 fL (7.4-10.4); Platelet Count 321 10^3/uL (150-450); Red Blood Count 3.65 10^6 /uL (4.18-5.48); Red Cell Distribution Width 23 % (10.5-15); White Blood Count 7.7 10^3/uL (3.5-10.8)
[2018-05-27 07:12] LABS: Albumin 2.5 g/dL (3.2-5.2); Albumin/Globulin Ratio 0.5 (1-3); BUN/Creatinine Ratio 18.7 (8-20); Calcium 8.6 mg/dL (8.6-10.3); EGFR African American 28.5 (>60); EGFR Non-African American 23.5 (>60); Globulin 4.6 g/dL (2-4); Magnesium 1.7 mg/dL (1.9-2.7); Total Bilirubin 0.4 mg/dL (0.2-1.0); Total Protein 7.1 g/dL (6.4-8.9)
[2018-05-27 07:18] LABS: Potassium 5.1 mmol/L (3.5-5.0)
[2018-05-27 07:49] LABS: ABS Basophils 0.1 10^3/ul (0-0.2); ABS Eosinophils 0.1 10^3/ul (0-0.6); ABS Lymphocytes 2.3 10^3/ul (1.0-4.8); ABS Monocytes 0.6 10^3/ul (0-0.8); ABS Neutrophils 4.6 10^3/ul (1.5-7.7); ABS Nucleated RBC 0 10^3/ul; Eosinophil % 0.9 %; Lymphocyte % 29.8 %; Nucleated Red Blood Cells % 0.1
--- NOTE | 2018-05-27 10:02 | PN ---
Progress Note - Progress Note Date of Service: 05/27/18 SOAP: Subjective: [] Objective: [] Assessment: [] Plan: []
[2018-05-27] MEDS: Metoprolol Tartrate TAB* 25 MG PO SCH ×2 (10:03→20:41)
[2018-05-27] MEDS: Pantoprazole TAB * 40 MG TAB PO SCH (10:03)
[2018-05-27] MEDS: Aspirin 81 mg CHEW TAB* 81 MG TAB.CHEW PO SCH (10:03)
[2018-05-27] MEDS ORDERED: Magnesium Sulf 4 GM/100 ML IV* 4,000 MG/100 ML BAG IVPB ONE (10:15)
--- NOTE | 2018-05-27 10:16 | PN ---
Progress Note - Progress Note Date of Service: 05/27/18 SOAP: Subjective: [Admitted yesterday evening with c/o weakness and dyspnea with noted TINY. He received IVF overnight and feels better this am. He slept well. Received baclofen for his hiccups which seemed to help him rest, but the hiccups are back this am after talking. He hasn't eaten breakfast yet. Renal function still does not allow for contrast this am. CT chest without contrast shows no new pathology. Pulm lesions are stable, no infiltrate or interstitial changes. VQ scan is pending.] Objective: [ Laboratory Results - last 24 hr 05/27/18 05/27/18 05/27/18 05:30 05:30 05:30 WBC 7.7 RBC 3.65 L Hgb 10.3 L Hct 32 L MCV 87 MCH 28 MCHC 33 RDW 23 H Plt Count 321 MPV 7.9 Neut % (Auto) 60.2 Lymph % (Auto) 29.8 [place] % (Auto) 8.1 Eos % (Auto) 0.9 Baso % (Auto) 1.0 Absolute Neuts (auto) 4.6 Absolute Lymphs (auto) 2.3 Absolute Monos (auto) 0.6 Absolute Eos (auto) 0.1 Absolute Basos (auto) 0.1 Absolute Nucleated RBC 0 Nucleated RBC % 0.1 Macrocytosis 1+ Rouleaux 1+ INR (Anticoag Therapy) 2.25 H Sodium 133 L Potassium 5.1 H Chloride 104 Carbon Dioxide 18 L Anion Gap 11 BUN 50 H Creatinine 2.68 H Est GFR ( Amer) 28.5 Est GFR (Non-Af Amer) 23.5 BUN/Creatinine Ratio 18.7 Glucose 111 H Calcium 8.6 Magnesium 1.7 L Total Bilirubin 0.40 AST 45 H ALT 31 Alkaline Phosphatase 190 H Total Protein 7.1 Albumin 2.5 L Globulin 4.6 H Albumin/Globulin Ratio 0.5 L Aspirin (Aspirin 81 Mg Chew Tab*) 81 mg PO DAILY DAK[facility] Baclofen (Lioresal Tab*) 10 mg PO TID PRN PRN Reason: hiccups Last Admin: 05/26/18 20:34 Dose: 10 mg Guaifenesin/Codeine Phosphate (Robitussin Ac 100mg-10mg*) 10 ml PO Q6HR PRN PRN Reason: COUGH Last Admin: 05/26/18 20:34 Dose: 10 ml Sodium Chloride (Ns 0.9% 1000 Ml) 1,000 mls @ 50 mls/hr IV .PER RATE [facility] Last Admin: 05/26/18 20:37 Dose: 50 mls/hr Magnesium Sulfate (Magnesium Sulf 4 Gm/100 Ml Iv*) 4,000 mg in 100 mls @ 33.333 mls/hr IVPB ONCE ONE Stop: 05/27/18 13:14 Metoprolol Tartrate (Lopressor Tab*) 25 mg PO BID [facility] Last Admin: 05/26/18 20:34 Dose: 25 mg Pantoprazole Sodium (Protonix Tab*) 40 mg PO DAILY [facility] Last Admin: 05/26/18 21:43 Dose: 40 mg Vital Signs: Temp Pulse Resp BP Pulse Ox 97.7 F 81 18 127/72 99 05/27/18 08:17 05/27/18 08:17 05/27/18 08:17 05/27/18 08:17 05/27/18 08:17 Exam: Gen: lethargic appearing, but easily arousable 72 yo male in NAD HEENT: MMM, no thrush CV: RRR, no m/r/g Resp: CTA, no w/c/r Abd: soft, nonTTP Ext: no edema Assessment: [72 yo male with metastatic RCC on pazopinib who also recently started pembrolizumab who was admitted with c/o dyspnea, weakness and hiccups. He TINY on admission with a rise in his Cr from baseline 1.5 to 3.0, which appeared to be secondary to hypovolemia which is improving with fluids. Etiology of his TINY is likely multifactorial. He reported poor po intake over the last couple of days with intermittent diarrhea. He was also started on an ARB and loop diuretic following his last admission, ~10d ago which may have caused/ contributed to TINY. Based on his home medication list he has both olmesartan and valsartan. Patient is not clear if he is taking both. Confirmation with his pharmacy shows that he's filled both, but his last olmesartan fill was in February so he should be out of that. Etiology of his dyspnea is not clear, unless it was a manifestation of his weakness secondary to TINY. CT chest shows no acute pathology. PE is still on the differential, but low suspicion as he is currently anticoagulated and therapeutic. His anticoagulation was interrupted for several days with his last admission however. VQ scan ordered for today as renal function will still not allow for contrast.] Plan: [1. TINY - see discussion above - cont IVF (slow rate) and hold ARB/diuretic - UA pending 2. Dyspnea - pending VQ, but not hypoxic or tachypneic and improving 3. CHF - last EF 30-35%, unclear if this is drug effect v ischemic from prior CAD - no evidence of acute exacerbation - currently hypovolemic and ARB/diuretic being held for TINY - cont BB 4. RCC - currently treated with pazopinib/pembrolizumab - holding pazopinib currently but plan to resume when renal function recovers3 5. DVT prophylaxis - anticoagulated with Coumadin, therapeutic INR Dispo: VQ scan pending and renal function still recovering. He would benefit from additional inpatient care and will request PT eval with plans to return home in the next couple of days.
[2018-05-27 11:47] LABS: Urine Appearance Cloudy; Urine Bilirubin Negative (Negative); Urine Blood Negative (Negative); Urine Color Yellow; Urine Glucose Negative (Negative); Urine Ketones Negative (Negative); Urine Nitrite Negative (Negative); Urine Protein Negative (Negative); Urine Specific Gravity 1.014 (1.010-1.030); Urine Urobilinogen Negative (Negative)
[2018-05-27] MEDS: NS 0.9% 1000 ML** 1,000 ML IV SCH (16:01)
[2018-05-27] MEDS ORDERED: Warfarin TAB(*) 2.5 MG PO SCH (17:00)
[2018-05-27] MEDS: Baclofen TAB* 10 MG PO PRN (20:43)
[2018-05-28 05:28] LABS: ABS Basophils 0.1 10^3/ul (0-0.2); ABS Eosinophils 0.1 10^3/ul (0-0.6); ABS Lymphocytes 2.1 10^3/ul (1.0-4.8); ABS Monocytes 0.7 10^3/ul (0-0.8); ABS Neutrophils 3.6 10^3/ul (1.5-7.7); ABS Nucleated RBC 0 10^3/ul; Eosinophil % 1.6 %; Hematocrit 30 % (36-46); Hemoglobin 9.8 g/dL (14.0-18.0); Lymphocyte % 32.3 %; Mean Corpuscular HGB Conc 32 g/dL (31-36); Mean Corpuscular Hemoglobin 28 pg (27-31); Mean Corpuscular Volume 88 fL (80-94); Nucleated Red Blood Cells % 0; Platelet Count 319 10^3/uL (150-450); Red Blood Count 3.47 10^6 /uL (4.18-5.48); Red Cell Distribution Width 23 % (10.5-15); White Blood Count 6.6 10^3/uL (3.5-10.8)
[2018-05-28 05:34] LABS: INR 1.82 (0.77-1.02)
[2018-05-28 05:44] LABS: Albumin 2.4 g/dL (3.2-5.2); Albumin/Globulin Ratio 0.6 (1-3); BUN/Creatinine Ratio 19.1 (8-20); Calcium 8.5 mg/dL (8.6-10.3); EGFR African American 30.7 (>60); EGFR Non-African American 25.4 (>60); Globulin 4.1 g/dL (2-4); Magnesium 2.5 mg/dL (1.9-2.7); Potassium 5.4 mmol/L (3.5-5.0); Total Bilirubin 0.3 mg/dL (0.2-1.0); Total Protein 6.5 g/dL (6.4-8.9)
[2018-05-28 08:50] VITALS: BP 138/84
--- NOTE | 2018-05-28 09:26 | DS ---
- Discharge Summary ADMIT DATE: 05/26/18 DISCHARGE DATE: 05/28/2018 DISCHARGE DIAGNOSES: 1. dehydration 2. acute kidney injury 2/2 dehydration and dual ARB use 3. metastatic kidney cancer, poor tolerance of pazopanib DISCHARGE MEDICATIONS: Home Medications Medication Instructions Recorded Confirmed Type Fluticasone NASAL SPRAY 50MCG* 2 spray BOTH NARES DAILY PRN 04/19/17 05/26/18 History [Flonase NASAL SPRAY 50MCG*] Pravastatin Sodium [Pravachol] 80 mg PO DAILY 04/19/17 05/26/18 History Warfarin TAB(*) [Coumadin TAB(*)] 2.5 mg PO SEE INSTRUCTIONS 04/19/17 05/26/18 History Aspirin 81 mg CHEW TAB* 81 mg PO DAILY 05/11/18 05/26/18 History Felodipine (NF) [Plendil (NF)] 5 mg PO DAILY 05/11/18 05/26/18 History Metoprolol Tartrate TAB* 25 mg PO BID 30 Days tab 05/16/18 05/26/18 Rx [Lopressor TAB*] Codeine Phosphate/Guaifenesin 10 ml PO Q6HR PRN MDD 40mL 05/26/18 05/26/18 History [Guaifen-Codeine 100-10 mg/5 ml] Baclofen TAB* [Lioresal TAB*] 10 mg PO TID PRN #90 tab 05/28/18 Rx DISCHARGE FOLLOW UP: nurse visit, labs, BP check 05/31 at 9 am HOSPITAL COURSE: 72 YO m w metastitic RCC recently started on Pembrolizumab/pazopanib (the latter of which he has tolerated poorly in the past) p/w weakness, fatigue, SOB and acute kidney injury in the setting of diarrhea, poor PO intake and dual ARB usage (while on diuretic). clinically he is markedly improved with hydration and holding these medications. He will be discharged home off of those three medications, and will hold his pazopanib. He will come Wednesday for labs and BP check. he has a full follow up OV on the with ERWIN Pires and at that time clinical course will be decided (resume pazopanib vs. single agent pembro) . I discharged him back on his 2.5 mg of warfarin daily and we will repeat inr on Wednesday. His hiccups have responded nicely to baclofen. The etiology of his SOB was not clear. V/Q scan was negative and CT with stable lung mets. >30 mins spent , >50 % in face to face counseling
[2018-05-28] MEDS: Pantoprazole TAB * 40 MG TAB PO SCH (10:09)
[2018-05-28] MEDS: Aspirin 81 mg CHEW TAB* 81 MG TAB.CHEW PO SCH (10:09)
[2018-05-28] MEDS: Metoprolol Tartrate TAB* 25 MG PO SCH (10:09)
[2018-05-28] MEDS ORDERED: Warfarin TAB(*) 2.5 MG PO SCH (17:00)
[2018-05-31] MEDS ORDERED: Warfarin TAB(*) 2.5 MG PO SCH (17:00)
== END 2018-05-28 11:55 | disposition home health service (06) | DRG 683 ==
LOC: MED 09:44 → OBSVTOIN 05-27 09:44
PROVIDERS: ADMIT Internal Medicine Hematology & Oncology; ATTEND Internal Medicine Hematology & Oncology
DX: N17.9 Acute kidney failure, unspecified (principal); C64.9 Malignant neoplasm of unspecified kidney, except renal pelvis; C79.9 Secondary malignant neoplasm of unspecified site; E86.0 Dehydration; E78.5 Hyperlipidemia, unspecified; I44.7 Left bundle-branch block, unspecified; I11.0 Hypertensive heart disease with heart failure; I50.9 Heart failure, unspecified; E86.1 Hypovolemia; T50.2X5A Adverse effect of carbonic-anhydrase inhibitors, benzothiadiazides and other diuretics, initial encounter; T50.995A Adverse effect of other drugs, medicaments and biological substances, initial encounter; M35.3 Polymyalgia rheumatica; I73.9 Peripheral vascular disease, unspecified; Z87.11 Personal history of peptic ulcer disease; Z87.891 Personal history of nicotine dependence; Z83.3 Family history of diabetes mellitus; Z88.1 Allergy status to other antibiotic agents; Y92.9 Unspecified place or not applicable; Z79.82 Long term (current) use of aspirin; Z79.01 Long term (current) use of anticoagulants
CPT/HCPCS: 36415; 71046; 71250; 78582; 80053; 81003; 83735; 85025; 85060; 85610; 99232; 99239; A9270-GY; A9540; A9558; G0378; G8978-GP-CI; G8979-GP-CH; J1644; J3475

== ENCOUNTER 2018-05-30 13:51 | Inpatient (IN) | payer MEDICARE, OTHER ==
[2018-05-30] MEDS ORDERED: Acetaminophen TAB* 325 MG PO PRN (17:12)
[2018-05-30] MEDS ORDERED: Enoxaparin(*) 30 MG/0.3 ML SYR SUBCUT SCH (18:00)
[2018-05-30] MEDS: NS 0.9% 1000 ML** 1,000 ML IV SCH (18:00)
[2018-05-30] MEDS ORDERED: SIMILASAN EYE BOTH EYES PRN (18:08)
[2018-05-30] MEDS ORDERED: guaiFENesin/CODIEN 100MG-10MG* 5 ML UDC ONE (20:19)
[2018-05-30] MEDS ORDERED: guaiFENesin/CODIEN 100MG-10MG* 5 ML UDC PO ONE (20:30)
[2018-05-30] MEDS ORDERED: Warfarin TAB(*) 2.5 MG PO SCH (20:30)
[2018-05-30] MEDS: Metoprolol Tartrate TAB* 25 MG PO SCH (21:00)
[2018-05-30] MEDS: Docusate CAP* 100 MG PO SCH (21:00)
[2018-05-31] MEDS: NS 0.9% 1000 ML** 1,000 ML IV SCH ×2 (05:45→23:47)
[2018-05-31] MEDS: amLODIPine TAB* 5 MG PO SCH (08:16)
[2018-05-31] MEDS: Metoprolol Tartrate TAB* 25 MG PO SCH ×2 (08:16→21:09)
[2018-05-31] MEDS: Docusate CAP* 100 MG PO SCH ×2 (08:16→21:10)
[2018-05-31 09:05] LABS: ABS Basophils 0.1 10^3/ul (0-0.2); ABS Eosinophils 0 10^3/ul (0-0.6); ABS Monocytes 0.9 10^3/ul (0-0.8); ABS Neutrophils 2.9 10^3/ul (1.5-7.7); ABS Nucleated RBC 0 10^3/ul; Eosinophil % 0.6 %; Hematocrit 28 % (36-46); Hemoglobin 9.1 g/dL (14.0-18.0); Lymphocyte % 34.4 %; Mean Corpuscular HGB Conc 33 g/dL (31-36); Mean Corpuscular Hemoglobin 29 pg (27-31); Mean Corpuscular Volume 88 fL (80-94); Nucleated Red Blood Cells % 0; Platelet Count 369 10^3/uL (150-450); Red Blood Count 3.19 10^6 /uL (4.18-5.48); Red Cell Distribution Width 24 % (10.5-15); White Blood Count 5.9 10^3/uL (3.5-10.8)
[2018-05-31 09:11] LABS: Albumin 2.4 g/dL (3.2-5.2); Albumin/Globulin Ratio 0.6 (1-3); BUN/Creatinine Ratio 18.3 (8-20); Calcium 8.2 mg/dL (8.6-10.3); EGFR African American 48.5 (>60); EGFR Non-African American 40.1 (>60); Globulin 4.2 g/dL (2-4); Magnesium 1.3 mg/dL (1.9-2.7); Total Bilirubin 0.4 mg/dL (0.2-1.0); Total Protein 6.6 g/dL (6.4-8.9)
[2018-05-31 09:12] LABS: Potassium 5.1 mmol/L (3.5-5.0)
[2018-05-31] MEDS ORDERED: Magnesium Sulf 4 GM/100 ML IV* 4,000 MG/100 ML BAG IVPB ONE (10:00)
--- NOTE | 2018-05-31 10:36 | PN ---
Progress Note - Progress Note Date of Service: 05/31/18 SOAP: Subjective: []Presented to office yesterday "seeing things" following discharge home on prochlorperazine d/t intractable hiccups. Tells me he feels better today and has not had an hallucinations. Has a very annoying dry cough and wonders if he can try cough drops. Having some RLQ abd. pain. Had diarrhea yesterday. Medications: Acetaminophen (Tylenol Tab*) 650 mg PO Q4H PRN PRN Reason: FEVER/PAIN Amlodipine Besylate (Norvasc Tab*) 5 mg PO DAILY [facility]; Protocol Last Admin: 05/31/18 08:16 Dose: 5 mg Docusate Sodium (Colace Cap*) 100 mg PO BID [facility] Last Admin: 05/31/18 08:16 Dose: 100 mg Heparin Sodium (Porcine) (Heparin Flush Port ([place])) 5 ml FLUSH DAILY [facility]; Protocol Last Admin: 05/31/18 08:09 Dose: Not Given Sodium Chloride (Ns 0.9% 1000 Ml) 1,000 mls @ 100 mls/hr IV PER RATE [facility] Last Admin: 05/31/18 05:45 Dose: 100 mls/hr Magnesium Sulfate (Magnesium Sulf 4 Gm/100 Ml Iv*) 4,000 mg in 100 mls @ 33.333 mls/hr IVPB ONCE ONE Stop: 05/31/18 12:59 Last Admin: 05/31/18 09:54 Dose: 33.333 mls/hr Metoprolol Tartrate (Lopressor Tab*) 25 mg PO BID [facility] Last Admin: 05/31/18 08:16 Dose: 25 mg Pto: Similasan Eye (Drops) 2 dose BOTH EYES Q2H PRN PRN Reason: DRY EYES Warfarin Sodium (Coumadin Tab(*)) 1.25 mg PO TuTh@1700 DAK[facility] Warfarin Sodium (Coumadin Tab(*)) 2.5 mg PO SuMoWeFrSa@1700 [facility]; Protocol Objective: [] Vital Signs Temp Pulse Resp BP Pulse Ox 98.0 F 78 16 132/64 97 05/31/18 07:43 05/31/18 07:43 05/31/18 08:00 05/31/18 07:43 05/31/18 07:43 A&Ox3, EOMI, PERRLA, ROY, strength=bilat. CN II-XII intact HRR, S1S2 LS dim. to bases, dry cough +BS, abd. soft with tenderness to RLQ +PP=bilat., no edema Dry skin Laboratory Results - last 24 hr 05/31/18 05/31/18 08:38 08:38 WBC 5.9 RBC 3.19 L Hgb 9.1 L Hct 28 L MCV 88 MCH 29 MCHC 33 RDW 24 H Plt Count 369 MPV 7.0 L Neut % (Auto) 49.4 Lymph % (Auto) 34.4 [place] % (Auto) 14.5 Eos % (Auto) 0.6 Baso % (Auto) 1.1 Absolute Neuts (auto) 2.9 Absolute Lymphs (auto) 2.0 Absolute Monos (auto) 0.9 H Absolute Eos (auto) 0 Absolute Basos (auto) 0.1 Absolute Nucleated RBC 0 Nucleated RBC % 0 Sodium 133 L Potassium 5.1 H Chloride 107 Carbon Dioxide 17 L Anion Gap 9 BUN 31 H Creatinine 1.69 H Est GFR ( Amer) 48.5 Est GFR (Non-Af Amer) 40.1 BUN/Creatinine Ratio 18.3 Glucose 93 Calcium 8.2 L Magnesium 1.3 L Total Bilirubin 0.40 AST 44 H ALT 31 Alkaline Phosphatase 153 H Total Protein 6.6 Albumin 2.4 L Globulin 4.2 H Albumin/Globulin Ratio 0.6 L Assessment: []72 yo male with advanced renal cell carcinoma started on pazopanib and most recently pembroluzimab added (given 05/19) admitted with delerium that appears r/ t compazine. He has been admitted three times this month with some concern for failure to thrive, I would like to have neurology weigh in on his neurological status and consider possible outpatient dementia work-up. We will also have social work see him to evaluate his needs on discharge Plan: []1. Medication induced Delerium: appears resolved with compazine discontinued - avoid anti-cholinergics - significant poly-pharmacy with recent CHF dx., will attempt to decrease medications on d/c as well 2. TINY: appears related to dehydration, cont. IV fluids - renal US negative 3. CHF: repeat echo today pending 4. FTT: social work consult Dispo: repeat labs in AM and plan home if stable
[2018-05-31] MEDS: Benzocaine/Menthol LOZ* 1 LOZENGE PO PRN ×3 (10:50→23:46)
--- NOTE | 2018-05-31 11:31 | ECHO ---
Patient: JONNY HAMILTON [facility] Rec#: [id number] : 1945 Date: 05/31/2018 Age: 72y Height: 175 cm / 68.9 in Weight: 72 kg / 158.7 lbs Sex: M BSA: 1.87 Room#: 402 Admit Date#: 05/30/2018 Type: Inpatient Referring: José Frazier MD Reading: Bruno Charles MD [employer] Supervisor: Abril Cruz RDCS CC: Aristides Hoffman MD Transthoracic Echocardiogram Indication: Congestive heart failure BP: 133/72 HR: 92 Rhythm: NSR Findings History: HTN, HLD, LBBB, PBD, kindney cancer with right nephrectomy, former smoker, CHF. Technical Comments: The study quality is fair. The study is technically limited due to poor parasternal windows. Completed at 0955. Left Ventricle: The left ventricular chamber size is normal. Mild concentric left ventricular hypertrophy is observed. Basal septal hypertrophy and systolic anterior motion of the mitral valve are observed creating an outflow tract gradient. Peak velocity 2.8 m/s There is global hypokinesis of the left ventricle with minor regional variation. There is moderately decreased left ventricular systolic function. The estimated ejection fraction is 30-35%. There is a left ventricular septal wall motion abnormality observed, possibly due to the presence of a left bundle branch block. Abnormal left ventricular diastolic function is observed. There is an E to A reversal in the mitral valve flow pattern suggestive of diastolic dysfunction. Left Atrium: The left atrial chamber size is normal. Right Ventricle: Moderator Band present. The right ventricular cavity size is normal. The right ventricular global systolic function is normal. Right Atrium: The right atrial cavity size is normal. Aortic Valve: The aortic valve is trileaflet. The aortic valve leaflets are mildly thickened. There is moderate thickening of the left coronary cusp. There is evidence of aortic sclerosis without stenosis. There is a trace of aortic regurgitation. There is mild aortic stenosis. The mean gradient of the aortic valve is 12 mmHg. The peak instantaneous gradient of the aortic valve is 38 mmHg. Mitral Valve: The mitral valve leaflets are mildly thickened. There is mild mitral regurgitation. There is no evidence of mitral stenosis. Tricuspid Valve: The tricuspid valve leaflets are normal. There is mild tricuspid regurgitation. The right ventricular systolic pressure is estimated at 28 mmHg. No pulmonary hypertension is noted. There is no tricuspid stenosis. Pulmonic Valve: The pulmonic valve appears normal. There is trace to mild pulmonic regurgitation. There is no pulmonic stenosis. Pericardium: There is no significant pericardial effusion. A pericardial fat pad is visualized. Aorta: There is no dilatation of the ascending aorta. There is no dilatation of the aortic arch. The aortic root is normal in size. Pulmonary Artery: The main pulmonary artery appears normal. Venous: The inferior vena cava appears normal in size. There is a greater than 50% respiratory change in the inferior vena cava dimension. Summary: There are no significant changes when compared to the previous study done on 05/12/18 Conclusions Mild concentric left ventricular hypertrophy is observed. Basal septal hypertrophy and systolic anterior motion of the mitral valve are observed creating an outflow tract gradient. Peak velocity 2.8 m/s There is global hypokinesis of the left ventricle with minor regional variation. There is moderately decreased left ventricular systolic function. The estimated ejection fraction is 30-35%. There is a left ventricular septal wall motion abnormality observed, possibly due to the presence of a left bundle branch block. Abnormal left ventricular diastolic function is observed. The right ventricular global systolic function is normal. The aortic valve leaflets are mildly thickened. There is a trace of aortic regurgitation. There is mild aortic stenosis. The mean gradient of the aortic valve is 12 mmHg. There is mild mitral regurgitation. There is mild tricuspid regurgitation. No pulmonary hypertension is noted. There is no significant pericardial effusion. There are no significant changes when compared to the previous study done on 05/12/18 Measurements Name Value Normal Range RVIDd (AP) 2D 3.2 cm (0.9 - 2.6) RVDdMajor (2D) 3.9 cm (2.2 - 4.4) RAd ISD 4CH 4.8 cm (3.4 - 4.9) RA (A4C)W 4.3 cm (2.9 - 4.6) IVSd (2D) 1.1 cm (0.6 - 1) LVPWd (2D) 1.1 cm (0.6 - 1) LVIDd (2D) 4.4 cm (3.6 - 5.4) LVIDs (2D) 3.1 cm - LV FS (2D) 29 % (25 - 45) Aortic Annulus 1.9 cm (1.4 - 2.6) Ao root diameter (2D) 3.2 cm (2.1 - 3.5) Ascending Ao 3.3 cm (2.1 - 3.4) Aortic arch 2.4 cm (1.8 - 3.4) LA dimension (AP) 2D 3.1 cm (2.3 - 3.8) LAd ISD 4CH 4.6 cm (2.9 - 5.3) LA ISD 4CH W 3.9 cm (2.5 - 4.5) Name Value Normal Range LA ESV BP (A/L) index 19 ml/m2 - Name Value Normal Range MV E-wave Vmax 0.5 m/sec - MV deceleration time 208 msec - MV A-wave Vmax 0.8 m/sec - MV E:A ratio 0.6 ratio - LV septal e' Vmax 0.05 m/sec - LV lateral e' Vmax 0.06 m/sec - LV E:e' septal ratio 10 ratio - LV E:e' lateral ratio 8.3 ratio - Name Value Normal Range AV Vmax 3.1 m/sec - AV VTI 36 cm - AV peak gradient 38 mmHg - AV mean gradient 12 mmHg - LVOT diameter 2 cm - LVOT Vmax 2.3 m/sec - LVOT VTI 27 cm - LVOT peak gradient 16 mmHg - LVOT mean gradient 8 mmHg - DOI (VTI) 0.75 ratio - ORALIA (continuity Vmax) 2.3 cm2 - ORALIA (continuity VTI) 2.4 cm2 - CONNIE Vmax 0.7 m/sec - Name Value Normal Range TR Vmax 2.5 m/sec - TR peak gradient 25 mmHg - RAP 3 mmHg - RVSP 28 mmHg - IVC diameter 1.4 cm - Name Value Normal Range PV Vmax 1.6 m/sec - PV peak gradient 10 mmHg -
[2018-05-31] MEDS ORDERED: Warfarin TAB(*) 2.5 MG PO SCH (17:00)
[2018-05-31] MEDS ORDERED: GuaiFENesin DM* 5 ML UDC PO PRN (21:30)
[2018-06-01] MEDS: NS 0.9% 1000 ML** 1,000 ML IV SCH ×2 (07:59→11:56)
[2018-06-01 08:39] LABS: Hematocrit 27 % (36-46); Hemoglobin 8.6 g/dL (14.0-18.0); Mean Corpuscular HGB Conc 33 g/dL (31-36); Mean Corpuscular Hemoglobin 29 pg (27-31); Mean Corpuscular Volume 88 fL (80-94); Mean Platelet Volume 7.1 fL (7.4-10.4); Platelet Count 356 10^3/uL (150-450); Red Blood Count 3.02 10^6 /uL (4.18-5.48); Red Cell Distribution Width 24 % (10.5-15); White Blood Count 5.5 10^3/uL (3.5-10.8)
[2018-06-01 08:53] LABS: Albumin 2.3 g/dL (3.2-5.2); Albumin/Globulin Ratio 0.6 (1-3); BUN/Creatinine Ratio 16.7 (8-20); EGFR African American 48.8 (>60); EGFR Non-African American 40.4 (>60); Globulin 3.8 g/dL (2-4); Magnesium 1.8 mg/dL (1.9-2.7); Total Bilirubin 0.4 mg/dL (0.2-1.0); Total Protein 6.1 g/dL (6.4-8.9)
[2018-06-01 08:57] LABS: Potassium 5.1 mmol/L (3.5-5.0)
[2018-06-01 09:36] LABS: INR 1.5 (0.77-1.02)
[2018-06-01 09:50] LABS: BUN/Creatinine Ratio 16.2 (8-20); Calcium 8.1 mg/dL (8.6-10.3); EGFR African American 47.2 (>60); Potassium 4.8 mmol/L (3.5-5.0)
[2018-06-01] MEDS: Benzocaine/Menthol LOZ* 1 LOZENGE PO PRN ×3 (09:54→23:40)
[2018-06-01] MEDS: Metoprolol Tartrate TAB* 25 MG PO SCH ×2 (10:08→19:57)
[2018-06-01] MEDS: amLODIPine TAB* 5 MG PO SCH (10:08)
[2018-06-01] MEDS: Docusate CAP* 100 MG PO SCH (10:16)
--- NOTE | 2018-06-01 10:22 | PN ---
Progress Note - Progress Note Date of Service: 06/01/18 SOAP: Subjective: []Feeling OK overall. No hallucinations, denies confusion. No hiccups, "but my cough is back." Loose stool this AM and abd. still a little 'tender' but denies cramping. " Lots of gas." - one BM daily with no evidence for blood Temperature overnight but denies new symptoms. Tells me today that he plans to move in with his son, Quinton, (ERWIN Crowe) this coming weekend. Daughter is coming in from [place] to help with the process as well. Medications: Acetaminophen (Tylenol Tab*) 650 mg PO Q4H PRN PRN Reason: FEVER/PAIN Last Admin: 05/31/18 23:42 Dose: 650 mg Amlodipine Besylate (Norvasc Tab*) 5 mg PO DAILY [facility]; Protocol Last Admin: 06/01/18 10:08 Dose: 5 mg Docusate Sodium (Colace Cap*) 100 mg PO BID [facility] Last Admin: 05/31/18 21:10 Dose: 100 mg Guaifenesin/Dextromethorphan (Robitussin Dm*) 10 ml PO Q6H PRN PRN Reason: COUGH Last Admin: 05/31/18 22:12 Dose: 10 ml Heparin Sodium (Porcine) (Heparin Flush Port (Ivad)) 5 ml FLUSH DAILY [facility]; Protocol Last Admin: 06/01/18 10:09 Dose: Not Given Sodium Chloride (Ns 0.9% 1000 Ml) 1,000 mls @ 100 mls/hr IV PER RATE [facility] Last Admin: 06/01/18 07:59 Dose: 100 mls/hr Metoprolol Tartrate (Lopressor Tab*) 25 mg PO BID [facility] Last Admin: 06/01/18 10:08 Dose: 25 mg Pto: Similasan Eye (Drops) 2 dose BOTH EYES Q2H PRN PRN Reason: DRY EYES Throat Lozenges (Chloraseptic Giovanna*) 1 giovanna PO Q6H PRN PRN Reason: SORE THROAT Last Admin: 06/01/18 09:54 Dose: 1 giovanna Warfarin Sodium (Coumadin Tab(*)) 1.25 mg PO TuTh@1700 [facility] Last Admin: 05/31/18 16:47 Dose: 1.25 mg Warfarin Sodium (Coumadin Tab(*)) 2.5 mg PO SuMoWeFrSa@1700 [facility]; Protocol Objective: [] Vital Signs Temp Pulse Resp BP Pulse Ox 97.7 F 73 24 148/68 99 06/01/18 08:17 06/01/18 07:27 05/31/18 23:24 06/01/18 10:12 06/01/18 07:27 A&Ox3, though difficulty with details at times and notably forgetful Neuro otherwise grossly non-focal Frail appearing HRR, S1S2 LS dim. with dry cough +BS, abd. soft with tenderness to RLQ Bilat. eyes with crusted exudate, no injection, lids pink Laboratory Results - last 24 hr 05/31/18 06/01/18 06/01/18 08:38 07:10 07:10 WBC 5.5 RBC 3.02 L Hgb 8.6 L Hct 27 L MCV 88 MCH 29 MCHC 33 RDW 24 H Plt Count 356 MPV 7.1 L INR (Anticoag Therapy) Sodium 133 L 132 L Potassium 5.1 H 5.1 H Chloride 107 108 Carbon Dioxide 17 L 16 L Anion Gap 9 8 BUN 31 H 28 H Creatinine 1.69 H 1.68 H Est GFR ( Amer) 48.5 48.8 Est GFR (Non-Af Amer) 40.1 40.4 BUN/Creatinine Ratio 18.3 16.7 Glucose 93 92 Uric Acid 7.0 Calcium 8.2 L 8.0 L Magnesium 1.3 L 1.8 L Total Bilirubin 0.40 0.40 AST 44 H 38 ALT 31 27 Alkaline Phosphatase 153 H 133 H Total Protein 6.6 6.1 L Albumin 2.4 L 2.3 L Globulin 4.2 H 3.8 Albumin/Globulin Ratio 0.6 L 0.6 L 06/01/18 06/01/18 09:00 09:00 WBC RBC Hgb Hct MCV MCH MCHC RDW Plt Count MPV INR (Anticoag Therapy) 1.50 H Sodium 133 L Potassium 4.8 Chloride 108 Carbon Dioxide 16 L Anion Gap 9 BUN 28 H Creatinine 1.73 H Est GFR ( Amer) 47.2 Est GFR (Non-Af Amer) 39.0 BUN/Creatinine Ratio 16.2 Glucose 165 H Uric Acid Calcium 8.1 L Magnesium Total Bilirubin AST ALT Alkaline Phosphatase Total Protein Albumin Globulin Albumin/Globulin Ratio Assessment: []72 yo male with advanced renal cell carcinoma started on pazopanib and most recently pembroluzimab added (given 05/19) admitted with delerium that appears r/ t compazine, now resolved. He unfortunately developed a fever overnight and although he has no overt S/S infection I would like to be very cautious and monitor overnight due to his multiple hospitalizations over the last month. Plan: []1. Medication induced Delerium: appears resolved with compazine discontinued - avoid anti-cholinergics - significant poly-pharmacy with recent CHF dx., will attempt to decrease medications on d/c as well 2. TINY: appears related to dehydration however with CHF will decrease fluids - renal US negative, follow daily labs 3. CHF: repeat echo stable, EF 30-35% 4. Fever: unclear source - check UA, check CXR, checc surveillance blood cultures as well - no abd. imaging for now - hold off on abx., monitor overnight 5. FTT: social work consult - question of mild dementia, plan for outpatient neuro consult Dispo: hopeful for d/c tomorrow as long as no further fevers, will work with SW to confirm plan to move in with son and assure his medical care is transferred appropriately
[2018-06-01] MEDS ORDERED: Docusate CAP* 100 MG PO PRN (10:26)
[2018-06-01 10:45] LABS: Magnesium 1.8 mg/dL (1.9-2.7)
[2018-06-01 13:31] LABS: Urine Appearance Clear; Urine Bilirubin Negative (Negative); Urine Blood Negative (Negative); Urine Color Yellow; Urine Glucose Negative (Negative); Urine Ketones Negative (Negative); Urine Nitrite Negative (Negative); Urine Protein Negative (Negative); Urine Specific Gravity 1.012 (1.010-1.030); Urine Urobilinogen Negative (Negative)
[2018-06-01] MEDS: Amoxicillin/Clavulanate TAB* 875 MG PO SCH ×2 (13:44→19:58)
[2018-06-01] MEDS: Polymyx/Trimethoprim OPTH* 10 ML BTL BOTH EYES SCH ×4 (13:47→23:30)
[2018-06-01] MEDS ORDERED: Warfarin TAB(*) 2.5 MG PO SCH ×2 (17:00)
[2018-06-02] MEDS: Polymyx/Trimethoprim OPTH* 10 ML BTL BOTH EYES SCH ×4 (02:15→09:07)
[2018-06-02 06:55] LABS: INR 1.54 (0.77-1.02)
[2018-06-02] MEDS: Benzocaine/Menthol LOZ* 1 LOZENGE PO PRN (07:44)
[2018-06-02] MEDS: Metoprolol Tartrate TAB* 25 MG PO SCH (09:07)
[2018-06-02] MEDS: Amoxicillin/Clavulanate TAB* 875 MG PO SCH (09:08)
[2018-06-02] MEDS: amLODIPine TAB* 5 MG PO SCH (09:08)
--- NOTE | 2018-06-02 10:39 | PN ---
Progress Note - Progress Note Date of Service: 06/02/18 SOAP: Subjective: []Overall better today, no more fever. Eating well and pain is controlled. Breathing is fine but has consistent cough, cough for most of night last night. PT/OT evaluation and did well. Wants to go home and is planning on moving in with son tomorrow in [facility]. Acetaminophen (Tylenol Tab*) 650 mg PO Q4H PRN PRN Reason: FEVER/PAIN Last Admin: 05/31/18 23:42 Dose: 650 mg Amlodipine Besylate (Norvasc Tab*) 5 mg PO DAILY [facility]; Protocol Last Admin: 06/02/18 09:08 Dose: 5 mg Amoxicillin/Clavulanate Potassium (Augmentin Tab*) 875 mg PO BID [facility] Last Admin: 06/02/18 09:08 Dose: 875 mg Docusate Sodium (Colace Cap*) 100 mg PO BID PRN PRN Reason: CONSTIPATION Guaifenesin/Dextromethorphan (Robitussin Dm*) 10 ml PO Q6H PRN PRN Reason: COUGH Last Admin: 05/31/18 22:12 Dose: 10 ml Heparin Sodium (Porcine) (Heparin Flush Port (Ivad)) 5 ml FLUSH DAILY [facility]; Protocol Last Admin: 06/02/18 09:07 Dose: 5 ml Sodium Chloride (Ns 0.9% 1000 Ml) 1,000 mls @ 50 mls/hr IV PER RATE [facility] Last Admin: 06/01/18 11:56 Dose: 50 mls/hr Metoprolol Tartrate (Lopressor Tab*) 25 mg PO BID [facility] Last Admin: 06/02/18 09:07 Dose: 25 mg Polymyxin/Trimethoprim Sulfate (Polytrim Ophth*) 1 drop BOTH EYES Q3H [facility] Last Admin: 06/02/18 09:07 Dose: 1 drop Throat Lozenges (Chloraseptic Giovanna*) 1 giovanna PO Q6H PRN PRN Reason: SORE THROAT Last Admin: 06/02/18 07:44 Dose: 1 giovanna Warfarin Sodium (Coumadin Tab(*)) 2.5 mg PO DAILY@1700 [facility]; Protocol Last Admin: 06/01/18 17:06 Dose: 2.5 mg Objective: [] Vital Signs Temp Pulse Resp BP Pulse Ox 97.6 F 86 20 130/77 97 06/02/18 08:03 06/02/18 09:04 06/02/18 09:13 06/02/18 07:51 06/02/18 07:51 HEENT: Mucosa moist, no lesions CTA RRR s1s2 +BS and NT, ND Ext w/ tr edema CXR - small RLL infiltrate. Echo w/ EF 30-35% Assessment: []72 yo male with advanced renal cell carcinoma started on pazopanib and most recently changed to axitinib and pembroluzimab (given 05/19) admitted with delerium that appears r/t compazine, now resolved. Hospital course complicated by fever and possible pnemonia. Multiple complications from therapy and has had intermittent adherence to oral regimen. Plan: []1. Medication induced Delerium: appears resolved with compazine discontinued - avoid anti-cholinergics - significant poly-pharmacy with recent CHF dx. - Home medications: Warafin, valsartin 40 mg po bid (sent), Metoprolol 25 mg bid , Norvasc 5 mg po daily, Robitussin DM (sent), tessalon perles (sent), axitinib 5 mg po bid, aumentin x 7 days (sent) 2. CHF. repeate echo with decreased EF. - Recommend cardiology consultation in [place]. - Medial therapy as above - Continue TKI 3. CRI. Stable after hydration, renal US negative, follow. 4. Fever and possible pneumonia. - Augmentin x 7 days on discharge. 5. RCC. He dose not have Axitinib, will track down through office. 6. Dispo is home today and move in with son tomorrow.
[2018-06-02 12:24] VITALS: BP 132/75
--- NOTE | 2018-06-02 20:19 | DS ---
CC: Dr. Hurtado, fax number [phone], [place], [place] DISCHARGE SUMMARY: DATE OF ADMISSION: 05/27/18 DATE OF DISCHARGE: 06/02/18 DISCHARGE DIAGNOSES: 1. Delirium. 2. Acute on chronic renal failure. 3. Metastatic renal cell carcinoma. 4. Pneumonia. 5. Anemia. 6. Congestive heart failure. HOSPITAL COURSE: He came in with acute delirium 23 hours after prior discharge. It was thought to be secondary to polypharmacy, specifically taking Compazine at home. On admission, he had visual hallucinations and was grossly disoriented. Anxious. We stopped all potentially offensive medications including his Robitussin A-C, Compazine, any other anticholinergics. He cleared after approximately 24 hours. MRI of the brain was obtained that showed a questionable area of encephalitis, but on review with Neurology, thought to be noncontributory and nonurgent. For the renal failure, he had a renal ultrasound that was negative and his creatinine corrected to 1.76, his baseline with hydration. He was found to have congestive heart failure 2 weeks ago on echocardiogram with ejection fraction 30% to 35%. Possibly secondary to tyrosine-kinase inhibitor therapy. He had a repeat echocardiogram during this admission that was stable. He has had persistent cough since diagnosis that increased after we stopped his Robitussin A-C. He has been managed with Robitussin DM and we are getting by. He had a fever last night with a repeat chest x-ray that showed a questionable left lower lobe infiltrate and he is now on Augmentin. Today, he is feeling well, anxious to go home. He has not had any fever in the last 24 hours and he is tolerating the Augmentin. Plan will be to discharge home today and then he will go tomorrow to move in with his son in [place], [place]. He has an appointment with Dr. Hurtado this coming Wednesday. That will be his new oncologist. DISCHARGE MEDICATIONS: 1. Warfarin 2.5 mg p.o. daily. 2. Valsartan 40 mg p.o. b.i.d., sent today. 3. Metoprolol 25 mg b.i.d. 4. Norvasc 5 mg daily. 5. Robitussin DM, sent today. 6. Tessalon Perles every 6 hours, sent today. 7. Axitinib 5 mg p.o. b.i.d., we will have office call to make sure he receives medication. 8. Augmentin 875 b.i.d. for 7 days, which was also sent today. DIAGNOSTIC STUDIES: No studies are pending. DISCHARGE INSTRUCTIONS: Followup will be on 06/08/18, with Dr. Hurtado at the [facility] and we are faxing all of his records. No followup scheduled in our clinic at this time. He is to call me over the weekend with any additional questions or concerns. [id number]/[facility] #: [id number] ARIANA
== END 2018-06-02 13:20 | disposition home health service (06) | DRG 896 ==
LOC: MED 16:29 → OBSVTOIN 05-31 12:00 → MED 06-01 18:44
PROVIDERS: ADMIT Internal Medicine Hematology & Oncology; ATTEND Internal Medicine Hematology & Oncology
DX: F19.921 Other psychoactive substance use, unspecified with intoxication with delirium (principal); J18.9 Pneumonia, unspecified organism; N17.9 Acute kidney failure, unspecified; C64.9 Malignant neoplasm of unspecified kidney, except renal pelvis; I50.9 Heart failure, unspecified; E86.0 Dehydration; I12.9 Hypertensive chronic kidney disease with stage 1 through stage 4 chronic kidney disease, or unspecified chronic kidney disease; N18.9 Chronic kidney disease, unspecified; D50.0 Iron deficiency anemia secondary to blood loss (chronic); E78.5 Hyperlipidemia, unspecified; I44.7 Left bundle-branch block, unspecified; I05.0 Rheumatic mitral stenosis; M35.3 Polymyalgia rheumatica; K27.9 Peptic ulcer, site unspecified, unspecified as acute or chronic, without hemorrhage or perforation; K44.9 Diaphragmatic hernia without obstruction or gangrene; R41.0 Disorientation, unspecified; R05 Cough; R50.9 Fever, unspecified; I73.9 Peripheral vascular disease, unspecified; Z88.8 Allergy status to other drugs, medicaments and biological substances; Z79.01 Long term (current) use of anticoagulants; Z79.82 Long term (current) use of aspirin; Z79.899 Other long term (current) drug therapy; Z87.891 Personal history of nicotine dependence; Z83.2 Family history of diseases of the blood and blood-forming organs and certain disorders involving the immune mechanism; Z83.3 Family history of diabetes mellitus
CPT/HCPCS: 36415; 70551; 71046; 76775; 80048; 80053; 81003; 83735; 84550; 85025; 85027; 85610; 87899; 93306; 99220; 99233; 99239; A9270-GY; G0378; G8978-GP-CI; G8979-GP-CI; G8980-GP-CI; G8987-GO-CI; G8988-GO-CI; G8989-GO-CI; J1642; J3475